=== PATIENT | male | born 1980 | race Caucasian/White ===

== ENCOUNTER 2020-12-30 20:20 | Emergency (ER) | payer OTHER ==
[2020-12-30 21:03] VITALS: BP 111/68; PULSE 76; TEMP 98.2; BMI 29.9
== END 2020-12-30 23:00 | disposition home or self-care (01) ==
LOC: JER 20:20 → JERFT 20:20
DX: H66.92 Otitis media, unspecified, left ear (principal)
CPT/HCPCS: 99282-25

== ENCOUNTER 2021-02-05 21:17 | Emergency (ER) | payer OTHER ==
[2021-02-05 21:21] VITALS: BP 130/76; PULSE 78; TEMP 97; BMI 29.9
[2021-02-05] MEDS ORDERED: DIPHTH,PERTUSS(ACELL),TET 0.5 ML DISP.SYRIN IM ONE ×2 (22:07→22:55)
[2021-02-05] MEDS ORDERED: CEPHALEXIN MONOHYDRATE 500 MG CAPSULE (UD) PO ONE (23:11)
[2021-02-05] MEDS ORDERED: CEPHALEXIN MONOHYDRATE 500 MG CAPSULE (UD) ONE (23:41)
== END 2021-02-06 00:19 | disposition home or self-care (01) ==
LOC: JER 21:17
PROC: 3E0234Z Introduction of Serum, Toxoid and Vaccine into Muscle, Percutaneous Approach (ICD-10-PCS; principal; 2021-02-05)
DX: S61.412A Laceration without foreign body of left hand, initial encounter (principal); W26.8XXA Contact with other sharp object(s), not elsewhere classified, initial encounter
CPT/HCPCS: 90471; 90715; 99284-25